=== PATIENT | male | born 1955 | race Caucasian/White ===

== ENCOUNTER 2024-11-03 10:50 | Emergency (ER) | payer MEDICARE, SELFPAY ==
[2024-11-03] VITALS (20 sets, daily range): BP systolic 123–160; BP diastolic 70–104; PULSE 80–120; RESP 15–27; TEMP 36.4; O2SAT 98–100
--- NOTE | 2024-11-03 10:45 | RT.EKG_ITS ---
APPROVED REPORT Exam: Resting ECG Reason for Exam: tachycardia Patient Location: E HR:107 bpm ECG Measurements Heart Rate 107 AXIS ND [id number] P [id number] QRSd 133 QRS -53 QT 383 T 124 QTc 511 Conclusion Atrial fibrillation 107 no stemi
[2024-11-03 11:45] LABS: Bilirubin Negative (Negative); Blood Negative (Negative); Clarity Clear (Clear); Glucose Negative (Negative); Ketones Trace mg/dL (Negative); Leukocyte Esterase Negative (Negative); Nitrite Negative (Negative); Specific Gravity 1.025 (1.005-1.025); pH 5.5 (5-8)
[2024-11-03 11:51] LABS: Abs Immature Grans 0.02 10^3/uL (0.0-0.06); Absolute Basophil Count 0.05 10^3/uL (0.0-0.2); Absolute Eosinophil Count 0.05 10^3/uL (0.0-0.7); Absolute Lymphocyte Count 1.19 10^3/uL (1.2-3.4); Absolute Monocyte Count 0.57 10^3/uL (0.1-0.8); Absolute Neutrophil Count 4.97 10^3/uL (1.2-6.7); Basophils % 0.7 %; Eosinophils % 0.7 %; HCT 46.3 % (40.0-50.0); HGB 15.3 g/dL (13.5-17.5); Immature Grans % 0.3 %; Lymphocytes % 17.4 %; MCH 30.7 pg (27.0-33.0); MCV 93 fL (80-95); MPV 9.9 fL (8.0-11.0); Monocytes % 8.3 %; Neutrophils % 72.6 %; Platelet Count 190 10^3/uL (130-400); RBC 4.99 10^6/uL (4.36-5.78); RDW 14.4 % (11.8-14.1); RDW-SD 49.5 fL; WBC 6.85 10^3/uL (4.4-10.8)
[2024-11-03 12:04] LABS: *AMPHETAMINES SCREEN URINE Negative (Negative); *BARBITURATES SCREEN URINE Negative (Negative); *BENZODIAZEPINES SCREEN URINE Negative (Negative); Cannabinoids THC Negative (Negative); Cocaine Screen,Urine Negative (Negative); METHADONE URINE SCREEN Negative (Negative); OPIATES URINE SCREEN Negative (Negative); Tricyclic Antidepressants Negative (Negative); WBC Negative HPF (0-5)
[2024-11-03 12:05] LABS: Bacteria Rare HPF (Negative); C & S Indicated? No; Casts Negative LPF (Negative); Crystals Negative HPF (Negative); Epithelial Cells Rare HPF (Negative); Mucus Negative (Negative); RBC 0-2 HPF (0-2)
[2024-11-03 12:12] LABS: Ammonia < 10 umol/L (11-32)
[2024-11-03 12:19] LABS: ALT 17 U/L (16-63); AST 14 U/L (15-37); Albumin 3.9 g/dL (3.4-5.0); Alkaline Phosphatase 44 U/L (46-116); Anion Gap 10.2 mmol/L (3-11); BUN 13 mg/dL (7-18); Bilirubin, Total 1.19 mg/dL (0.2-1.0); CO2 25.8 mmol/L (21.0-32.0); CREATININE 1.1 mg/dL (0.70-1.30); Calcium 9.1 mg/dL (8.5-10.1); Chloride 106 mmol/L (98-107); ETHANOL BLOOD < 3.0 mg/dL (<10); Estimated GFR 72.22 (mL/min/1.73m2); Glucose 118 mg/dL (74-106); Potassium 3.4 mmol/L (3.5-5.1); Sodium 142 mmol/L (136-145); TSH (W/Ref FT4) 4.37 uIU/mL (0.36-3.74); Total Protein 7.4 g/dL (6.4-8.2); Troponin I 64 ng/L (<or=76)
[2024-11-03 12:50] LABS: FREE T4 1.32 ng/dL (0.76-1.46)
--- NOTE | 2024-11-03 13:00 | DI.CT_ITS ---
Exam(s) CT HEAD WO EXAM: CT HEAD WO CLINICAL HISTORY: AMS. TECHNIQUE: Imaging Protocol: Axial computed tomography images with coronal and sagittal reformatted images were created and reviewed COMPARISON: No exams were available for comparison FINDINGS: Ventricles and Extra axial spaces: Normal in size and morphology for the patient's age. Hemorrhage: None. Cerebral parenchyma: No evidence of acute infarct or mass. Moderate atrophy. Old area infarct noted in the right anterior temporal lobe and right basal ganglia extending into the [place] radiata. Old i nfarct of the left temporal lobe. Midline shift: None. Brainstem/Cerebellum: Normal. Calvarium: Normal. Visualized Paranasal sinuses:Clear. Mastoids: Clear. Soft Tissues: Unremarkable. ORBITS: Unremarkable. PITUITARY: Not enlarged. IMPRESSION: No acute intracranial process. Old bilateral infarcts. RADIATION DOSE DELIVERED: 810.82mGy.cm Total DLP DATA REPOSITORY: All CT scans at this facility are submitted to the National Radiology Data Registry (NRDR) Dose Index Registry (DIR) with the [employer] ([employer]). RADIATION OPTIMIZATION: All CT scans at this facility use at least one of these dose optimization te chniques: automated exposure control; mA and/or kV adjustment per patient size (includes targeted exa ms where dose is matched to clinical indication); or iterative reconstruction.
[2024-11-03 14:03] LABS: Troponin I 63 ng/L (<or=76)
--- NOTE | 2024-11-03 16:32 | W.ED.GENAD ---
Discharge Plan Disposition Patient Disposition: Home Condition: Stable Discharge Details Clinical Impression: Altered mental state Primary Care Provider: Ariel Woo ED Provider: Ace Rios Home Meds and New Rx's Prescriptions: No Action Eliquis 5 mg tablet 5 mg PO BID metoprolol succinate 25 mg tablet extended release 24 hr 25 mg PO DAILY Discharge Instructions Additional Instructions: Change in mental status is likely secondary to his brain injury from the strokes. There is no sign of acute infection. CT today does not reveal significant change. Please follow-up with primary care doctor for medications that may help manage his behavioral issues. Discharge Data Discharge Date/Time-TO BE ENTERED AT DEPARTURE: 11/03/24 14:44 HPI General Date/Time Provider Initiated Documentation: 11/03/24 11:02. Limitations to Documentation: altered mental status. Information obtained by: patient and family. HPI Narrative: 76-year-old gentleman with past medical history of CVA, A-fib, on Eliquis, cardiomyopathy presents for evaluation of altered mental status. The patient was sent by home speech therapy because of mental status. reports that over the last 3 days he has been very mean to her. He has not been compliant with therapy. His heart rate has been occasionally fast. reports that he has had frequent behavioral issues since his stroke and doctors have recommended medication past. He has not started anything. They have not noted any recent falls or change in neurologic exam. He has baseline left-sided deficits from CVA. Related Data Home Medications ?Medication ?Instructions ?Recorded ?Confirmed apixaban 5 mg tablet (Eliquis) 5 mg PO BID 10/28/24 11/03/24 metoprolol succinate 25 mg 25 mg PO DAILY 10/28/24 11/03/24 tablet,extended release 24 hr Allergies Allergy/AdvReac Type Severity Reaction Status Date / Time No Known Allergies Allergy Verified 10/28/24 10:39 General Stated Complaint: AMS/LOC DIGNA: 2 Exam Narrative Exam Narrative: Review of Systems: All systems reviewed & are unremarkable except as noted in HPI and below Well-developed, no acute distress Left-sided facial droop Irregular clear bilaterally Unlabored respiratory effort Cooperative with exam but does defer to his son, ignores the and was fairly agitated by her presents some mild left-sided deficit but otherwise good strength throughout Course Vital Signs Vital signs: Vital Signs Pulse 114 H 11/03/24 11:01 Pulse Oximetry 99 11/03/24 11:01 Temperature 36.4 C L 11/03/24 11:10 Temperature Source Temporal Artery Scan 11/03/24 11:10 Pulse 80 11/03/24 14:42 Pulse 99 H 11/03/24 12:40 Respiratory Rate 16 11/03/24 14:42 Respiratory Effort Normal, Non-Labored 11/03/24 11:10 Respiratory Depth Normal 11/03/24 11:10 Respiratory Pattern Normal 11/03/24 11:10 Blood Pressure 123/90 11/03/24 14:42 Blood Pressure Mean 98 11/03/24 12:30 Blood Pressure Position Supine 11/03/24 11:10 Pulse Oximetry 100 11/03/24 14:42 Oxygen Delivery Method Room Air 11/03/24 14:42 Oxygen Flow Rate 0 11/03/24 14:42 Lab/Test Results Lab/Test Results: Laboratory Tests Range/Units 11/03/24 11/03/24 11/03/24 11:25 11:40 11:54 WBC (4.4-10.8) 10^3/uL 6.85 RBC (4.36-5.78) 10^6/uL 4.99 Hgb (13.5-17.5) g/dL 15.3 Hct (40.0-50.0) % 46.3 MCV (80-95) fL 93 MCH (27.0-33.0) pg 30.7 MCHC (32.0-36.0) % 33.0 RDW (11.8-14.1) % 14.4 H Plt Count (130-400) 10^3/uL 190 MPV (8.0-11.0) fL 9.9 Immature Gran % % 0.3 Neutrophils % % 72.6 Lymphocytes % % 17.4 Monocytes % % 8.3 Eosinophils % % 0.7 Basophils % % 0.7 Nucleated RBC % (0.0-0.3) % 0.0 Absolute Neutrophils (1.2-6.7) 10^3/uL 4.97 Absolute Lymphocytes (1.2-3.4) 10^3/uL 1.19 L Absolute Monocytes (0.1-0.8) 10^3/uL 0.57 Absolute Eosinophils (0.0-0.7) 10^3/uL 0.05 Absolute Basophils (0.0-0.2) 10^3/uL 0.05 Sodium (136-145) mmol/L 142 Potassium (3.5-5.1) mmol/L 3.4 L Chloride (98-107) mmol/L 106 Carbon Dioxide (21.0-32.0) mmol/L 25.8 Anion Gap (3-11) mmol/L 10.2 BUN (7-18) mg/dL 13 Creatinine (0.70-1.30) mg/dL 1.1 Est GFR (CKD-EPI 2020) (mL/min/1.73m2) 72.22 Glucose (74-106) mg/dL 118 H Calcium (8.5-10.1) mg/dL 9.1 Magnesium (1.8-2.4) mg/dL 2.0 Total Bilirubin (0.2-1.0) mg/dL 1.19 H AST (15-37) U/L 14 L ALT (16-63) U/L 17 Alkaline Phosphatase (46-116) U/L 44 L Ammonia (11-32) umol/L < 10 L Troponin I (<or=76) ng/L 64 Total Protein (6.4-8.2) g/dL 7.4 Albumin (3.4-5.0) g/dL 3.9 TSH (0.36-3.74) uIU/mL 4.37 H Free T4 (0.76-1.46) ng/dL 1.32 Urine Color (Yellow) Yellow Urine Clarity (Clear) Clear Urine pH (5-8) 5.5 Ur Specific [place] (1.005-1.025) 1.025 Urine Protein (Neg-Trace) mg/dL 30 H Urine Ketones (Negative) mg/dL Trace H Urine Blood (Negative) Negative Urine Nitrite (Negative) Negative Urine Bilirubin (Negative) Negative Urine Urobilinogen (Up to 0.2) mg/dL 1.0 H Ur Leukocyte Esterase (Negative) Negative Urine RBC (0-2) HPF 0-2 Urine WBC (0-5) HPF Negative Ur Epithelial Cells (Negative) HPF Rare Urine Crystals (Negative) HPF Negative Urine Bacteria (Negative) HPF Rare Urine Casts (Negative) LPF Negative Urine Mucus (Negative) Negative Ur Culture Indicated? No Urine Glucose (Negative) mg/dL Negative Urine Opiates Screen (Negative) Negative Urine Methadone Screen (Negative) Negative Ur Barbiturates Screen (Negative) Negative Ur Tricyclics Screen (Negative) Negative Ur Amphetamines Screen (Negative) Negative U Benzodiazepines Scrn (Negative) Negative Urine Cocaine Screen (Negative) Negative Ur THC Screen (Negative) Negative Ethyl Alcohol (<10) mg/dL < 3.0 Range/Units 11/03/24 11/03/24 13:09 14:03 WBC (4.4-10.8) 10^3/uL RBC (4.36-5.78) 10^6/uL Hgb (13.5-17.5) g/dL Hct (40.0-50.0) % MCV (80-95) fL MCH (27.0-33.0) pg MCHC (32.0-36.0) % RDW (11.8-14.1) % Plt Count (130-400) 10^3/uL MPV (8.0-11.0) fL Immature Gran % % Neutrophils % % Lymphocytes % % Monocytes % % Eosinophils % % Basophils % % Nucleated RBC % (0.0-0.3) % Absolute Neutrophils (1.2-6.7) 10^3/uL Absolute Lymphocytes (1.2-3.4) 10^3/uL Absolute Monocytes (0.1-0.8) 10^3/uL Absolute Eosinophils (0.0-0.7) 10^3/uL Absolute Basophils (0.0-0.2) 10^3/uL Sodium (136-145) mmol/L Potassium (3.5-5.1) mmol/L Chloride (98-107) mmol/L Carbon Dioxide (21.0-32.0) mmol/L Anion Gap (3-11) mmol/L BUN (7-18) mg/dL Creatinine (0.70-1.30) mg/dL Est GFR (CKD-EPI 2020) (mL/min/1.73m2) Glucose (74-106) mg/dL Calcium (8.5-10.1) mg/dL Magnesium (1.8-2.4) mg/dL Total Bilirubin (0.2-1.0) mg/dL AST (15-37) U/L ALT (16-63) U/L Alkaline Phosphatase (46-116) U/L Ammonia (11-32) umol/L Troponin I (<or=76) ng/L 63 Cancelled Total Protein (6.4-8.2) g/dL Albumin (3.4-5.0) g/dL TSH (0.36-3.74) uIU/mL Free T4 (0.76-1.46) ng/dL Urine Color (Yellow) Urine Clarity (Clear) Urine pH (5-8) Ur Specific [place] (1.005-1.025) Urine Protein (Neg-Trace) mg/dL Urine Ketones (Negative) mg/dL Urine Blood (Negative) Urine Nitrite (Negative) Urine Bilirubin (Negative) Urine Urobilinogen (Up to 0.2) mg/dL Ur Leukocyte Esterase (Negative) Urine RBC (0-2) HPF Urine WBC (0-5) HPF Ur Epithelial Cells (Negative) HPF Urine Crystals (Negative) HPF Urine Bacteria (Negative) HPF Urine Casts (Negative) LPF Urine Mucus (Negative) Ur Culture Indicated? Urine Glucose (Negative) mg/dL Urine Opiates Screen (Negative) Urine Methadone Screen (Negative) Ur Barbiturates Screen (Negative) Ur Tricyclics Screen (Negative) Ur Amphetamines Screen (Negative) U Benzodiazepines Scrn (Negative) Urine Cocaine Screen (Negative) Ur THC Screen (Negative) Ethyl Alcohol (<10) mg/dL Medical Decision Making Emergent evaluation of altered mental status and behavioral escalation. Patient has known behavioral issues since his CVA per the . He has been compliant with medications. He is intermittently compliant with therapy. He is not currently on any medications for behavioral management. The is clearly escalating the patient unintentionally and her presents is fairly agitated taking to him. But otherwise he has no focal abnormality on my initial evaluation. Initial differential includes worsened CVA, new CVA, electrolyte derangement, infectious etiology. The patient had lab work obtained. There is no leukocytosis or anemia, mild hypokalemia 3.4, no indication for emergent replacement. Lab work otherwise unremarkable. Ammonia level not elevated. Troponin not elevated. Thyroid function within normal limits. Urinalysis without signs of infection. Tox screen negative. A CT was obtained and obvious prior stroke noted but no acute abnormality. EKG reviewed A-fib 107 normal axis no acute STEMI. At this time the patient has remained calm and cooperative in the emergency department. I feel that this is likely behavioral issues likely secondary to his severe brain injury from a CVA and I recommend that he follow-up with his neurology team or primary care for further medication management for this. No indication for further emergent workup or hospitalization. Quality:SDOH Health Related Social Needs: No Data to Display PFSH All Active Problems (Updated 11/03/24 @ 14:17 by Ace Rios MD) Altered mental state (Acute) Tenuous home situation (Acute) Ischemic cardiomyopathy (Acute) History of TIA (transient ischemic attack) (Acute) Chronic ischemic left MCA stroke (Acute) Cardiomyopathy (Acute) Biventricular implantable cardioverter-defibrillator (ICD) at end of device life (Acute) Atrial fibrillation (Chronic) Acute ischemic right middle cerebral artery (MCA) stroke (Acute) Acute ischemic left MCA stroke (Acute) Social History (Updated 10/28/24 @ 10:53 by Mellisa Liz) Smoking/Tobacco Use Status: Never Smoking risk assessment performed?: Yes Alcohol Intake: former Drug use: Never Substance use type: does not use Housing: house Do you feel safe at home: Yes Do you feel safe in your relationship?: Yes
== END 2024-11-03 14:44 | disposition home or self-care (01) ==
LOC: ER 14:39
PROVIDERS: Emergency Provider Emergency Medicine; PCP Family Medicine
DX: R41.82 Altered mental status, unspecified (principal); R07.9 Chest pain, unspecified; I48.91 Unspecified atrial fibrillation; I42.9 Cardiomyopathy, unspecified; E87.6 Hypokalemia; Z79.899 Other long term (current) drug therapy
CPT/HCPCS: 36416; 80053; 80307; 82962; 93005; 99285; 70450; 80320; 81003; 81015; 82140; 83735; 84439; 84443; 84484; 85025; 93010; 99284

== ENCOUNTER → 2024-11-13 09:09 | Outpatient (BNVA) | payer MEDICARE, SELFPAY | PROVIDERS: PCP Family Medicine; Referring Provider Family Medicine; Visit Provider Psychiatry & Neurology Neurology | DX: I63.9 Cerebral infarction, unspecified (principal); F01.50 Vascular dementia, unspecified severity, without behavioral disturbance, psychotic disturbance, mood disturbance, and anxiety; R47.01 Aphasia; F10.10 Alcohol abuse, uncomplicated | CPT/HCPCS: 99215; G2212 ==

== ENCOUNTER 2025-01-08 19:05 | Outpatient (REF) | payer MEDICARE, SELFPAY ==
[2025-01-08 19:52] LABS: Abs Immature Grans 0.01 10^3/uL (0.0-0.06); Absolute Basophil Count 0.08 10^3/uL (0.0-0.2); Absolute Lymphocyte Count 1.41 10^3/uL (1.2-3.4); Absolute Monocyte Count 0.53 10^3/uL (0.1-0.8); Basophils % 1.3 %; Eosinophils % 1.6 %; HCT 44.2 % (40.0-50.0); HGB 14.1 g/dL (13.5-17.5); Immature Grans % 0.2 %; MCH 29.9 pg (27.0-33.0); MCHC 31.9 % (32.0-36.0); MCV 94 fL (80-95); MPV 10.3 fL (8.0-11.0); Monocytes % 8.6 %; Neutrophils % 65.3 %; Platelet Count 180 10^3/uL (130-400); RBC 4.72 10^6/uL (4.36-5.78); RDW 14.6 % (11.8-14.1); RDW-SD 50.4 fL; WBC 6.13 10^3/uL (4.4-10.8)
[2025-01-08 20:19] LABS: Hemoglobin A1C 5.3 % (<5.7)
[2025-01-08 20:43] LABS: ALT 24 U/L (16-63); AST 23 U/L (15-37); Albumin 3.5 g/dL (3.4-5.0); Alkaline Phosphatase 55 U/L (46-116); BUN 22 mg/dL (7-18); Bilirubin, Total 0.7 mg/dL (0.2-1.0); CREATININE 0.9 mg/dL (0.70-1.30); Calcium 9.1 mg/dL (8.5-10.1); Chloride 108 mmol/L (98-107); Estimated GFR 91.88 (mL/min/1.73m2); Folate 7.5 ng/mL (8.6-20.0); Glucose 93 mg/dL (74-106); Potassium 3.7 mmol/L (3.5-5.1); Sodium 143 mmol/L (136-145); Total Protein 7.2 g/dL (6.4-8.2); Vitamin B12 945 pg/mL (193-986); Vitamin D 25 Total 46 ng/mL (30-100)
[2025-01-08 21:04] LABS: FREE T4 0.98 ng/dL (0.76-1.46); NT-proBNP 3200 pg/mL (<300)
== END 2025-01-08 19:06 | disposition home or self-care (01) ==
LOC: LBN 19:05
PROVIDERS: PCP Family Medicine; Visit Provider Nurse Practitioner Gerontology
DX: R73.03 Prediabetes (principal); I50.22 Chronic systolic (congestive) heart failure; E55.9 Vitamin D deficiency, unspecified; E87.8 Other disorders of electrolyte and fluid balance, not elsewhere classified; D52.9 Folate deficiency anemia, unspecified; E61.1 Iron deficiency; R53.82 Chronic fatigue, unspecified; D51.9 Vitamin B12 deficiency anemia, unspecified; D63.8 Anemia in other chronic diseases classified elsewhere
CPT/HCPCS: 80053; 82306; 82607; 82746; 83036; 83735; 83880; 84439; 84443; 85025

== ENCOUNTER → 2025-02-18 13:44 | Outpatient (BNVA) | payer MEDICARE, SELFPAY | PROVIDERS: PCP Family Medicine; Referring Provider Family Medicine; Visit Provider Psychiatry & Neurology Neurology | DX: I63.9 Cerebral infarction, unspecified (principal); F01.50 Vascular dementia, unspecified severity, without behavioral disturbance, psychotic disturbance, mood disturbance, and anxiety; R47.01 Aphasia; F10.10 Alcohol abuse, uncomplicated | CPT/HCPCS: 99215 ==

== ENCOUNTER → 2025-06-01 12:39 | Outpatient (BNVA) | payer MEDICARE, MEDICAID, SELFPAY | PROVIDERS: PCP Family Medicine; Referring Provider Family Medicine; Visit Provider Psychiatry & Neurology Neurology | DX: I63.9 Cerebral infarction, unspecified (principal); F01.50 Vascular dementia, unspecified severity, without behavioral disturbance, psychotic disturbance, mood disturbance, and anxiety; R47.01 Aphasia; F10.10 Alcohol abuse, uncomplicated | CPT/HCPCS: 99215 ==

== ENCOUNTER → 2025-07-28 13:02 | Outpatient (BNVA) | payer MEDICARE, MEDICAID, SELFPAY | PROVIDERS: PCP Family Medicine; Referring Provider Family Medicine; Visit Provider Psychiatry & Neurology Neurology | DX: I63.9 Cerebral infarction, unspecified (principal); F01.50 Vascular dementia, unspecified severity, without behavioral disturbance, psychotic disturbance, mood disturbance, and anxiety; R47.01 Aphasia; F10.10 Alcohol abuse, uncomplicated | CPT/HCPCS: 99215 ==